=== PATIENT | male | born 1955 | race African-American/Black ===

== ENCOUNTER 2018-09-12 12:33 | Emergency (ER) ==
[2018-09-12] MEDS ORDERED: Cyclobenzaprine 10 MG TAB ONE (13:08)
[2018-09-12] MEDS ORDERED: Ibuprofen 800 MG TAB ONE (13:08)
== END 2018-09-12 13:32 | disposition home or self-care (01) ==
LOC: MADERS 12:33
DX: S16.1XXA Strain of muscle, fascia and tendon at neck level, initial encounter (principal); S39.012A Strain of muscle, fascia and tendon of lower back, initial encounter; F17.210 Nicotine dependence, cigarettes, uncomplicated; E78.00 Pure hypercholesterolemia, unspecified; Z71.6 Tobacco abuse counseling; V89.2XXA Person injured in unspecified motor-vehicle accident, traffic, initial encounter
CPT/HCPCS: 99406